=== PATIENT | male | born 1970 | race Caucasian/White ===

== ENCOUNTER 2016-12-01 16:39 | Emergency (ER) | payer BC ==
--- NOTE | 2016-12-01 17:01 | Emergency Department Record ---
History of Present Illness - General Chief complaint: Flank Pain Stated complaint: FLANK PAIN Time Seen by Provider: 12/01/16 16:49 Source: Patient Mode of Arrival: Ambulatory Limitations: No limitations - History of Present Illness Initial comments: 46 yo male presents with right back/flank pain that started Wednesday night. The pain initially came and went but is now constant. The pain is very sharp and hurts to twist or bend. No fever or chills. No blood in the urine. He denies any history of abdominal surgery. The patient was seen at [facility] with a report of normal labs and UA. He states no imaging was performed. The pain has been constant since that time. No chest pain. He points to his right flank as the source for pain. The pain "spams" if he rolls over or twists. Position changes hurt. NO radiation to the abdomen, legs or chest. He is most comfortable if standing. PCP is Dr Olivares. Onset/Timin Location: Right flank Radiation: R flank Quality: Sharp, Stabbing Consistency: Getting worse Improves with: None Worsens with: Movement, Palpation Reports: Other - Related Data Home Medications Medication Instructions Recorded Confirmed Last Taken Gabapentin [Gabapentin] 1 tab PO DAILY 09/24/13 12/01/16 12/01/16 Hydrocodone/Acetaminophen 1 tab PO Q6H PRN 09/24/13 12/01/16 12/01/16 [Hydrocodon-Acetaminophn 10-325] Levothyroxine Sodium [Levoxyl] 50 mcg PO DAILY 09/24/13 12/01/16 12/01/16 Allopurinol [Zyloprim] 300 mg PO DAILY 09/22/14 12/01/16 12/01/16 Azithromycin [Zithromax] 250 mg PO DAILY 12/01/16 12/01/16 12/01/16 Colchicine 0.6 mg PO ASDIR 12/01/16 12/01/16 Unknown Dexlansoprazole [Dexilant] 30 mg PO DAILY 12/01/16 12/01/16 12/01/16 Losartan Potassium 50 mg PO DAILY 12/01/16 12/01/16 12/01/16 Previous Rx's Medication Instructions Recorded Diazepam [Valium] 5 mg PO Q8H #20 tab 12/01/16 Methylprednisolone [Medrol Dose 4 mg PO DAILY #1 tab.ds.pk 12/01/16 Pack] Allergies Allergy/AdvReac Type Severity Reaction Status Date / Time saccharin Allergy Intermediate SWELLING Verified 03/10/15 08:34 OF THE LIPS sweet and low Allergy Intermediate SWELLING Uncoded 03/10/15 08:34 OF THE LIPS Travel Screening - Travel/Exposure Within Last 30 Days Have you traveled within the last 30 days?: No - Travel/Exposure Within Last Year Have you traveled outside the [place] in the last year?: No - Additonal Travel Details Have you been exposed to anyone with a communicable illness?: No - Travel Symptoms Symptom Screening: None Review of Systems Constitutional: Denies: Chills, Fever, Malaise, Weakness Eyes: Denies: Eye discharge ENT: Denies: Congestion, Throat pain Respiratory: Denies: Cough, Dyspnea, Hemoptysis, Stridor, Wheezes Cardiovascular: Denies: Chest pain, Palpitations, Syncope Endocrine: Denies: Fatigue Gastrointestinal: Denies: Abdominal pain, Diarrhea, Nausea, Vomiting Genitourinary: Denies: Dysuria, Frequency, Hematuria Musculoskeletal: Reports: Back pain. Denies: Arthralgia, Myalgia Skin: Denies: Bruising, Change in color, Rash Neurological: Denies: Headache, Numbness Psychiatric: Denies: Anxiety, Depression Hematological/Lymphatic: Denies: Blood Clots, Easy bleeding, Easy bruising, Swollen glands Past Medical History - SOCIAL HISTORY Smoking Status: Former smoker Alcohol Use: Rare Drug Use: None - RESPIRATORY Hx Respiratory Disorders: Yes Hx Sleep Apnea: Yes - CARDIOVASCULAR Hx Cardio Disorders: No - NEURO Hx Neuro Disorders: No - GI Hx GI Disorders: No - Hx Genitourinary Disorders: Yes Hx Kidney Stones: Yes - ENDOCRINE Hx Endocrine Disorders: Yes Hx Thyroid Disease: Yes (hypo) - MUSCULOSKELETAL Hx Musculoskeletal Disorders: Yes Hx Gout: Yes - PSYCH Hx Psych Problems: Yes Hx Depression: Yes - HEMATOLOGY/ONCOLOGY Hx Hematology/Oncology Disorders: No Family Medical History Any Significant Family History?: No Hx Cancer: Mother Hx Diabetes: Father Physical Exam - General General Appearance: Alert, Oriented x3, Cooperative, No acute distress - Head Head exam: Atraumatic, Normal inspection - Eye Eye exam: Normal appearance. negative: Conjunctival injection, Periorbital swelling - ENT ENT exam: Normal exam, Mucous membranes moist Ear exam: Normal external inspection Nasal Exam: Normal inspection Mouth exam: Normal external inspection - Neck Neck exam: Normal inspection - Respiratory Respiratory exam: Normal lung sounds bilaterally. negative: Respiratory distress - Cardiovascular Cardiovascular Exam: Regular rate, Normal rhythm, Normal heart sounds - GI/Abdominal GI/Abdominal exam: Soft, Other (obese). negative: Distended, Guarding, Rebound , Rigid, Tenderness - Rectal Rectal exam: Deferred - exam: Deferred - Extremities Extremities exam: Normal inspection, Full ROM, Normal capillary refill. negative: Tenderness - Back Back exam: Reports: CVA tenderness (R), Muscle spasm, Paraspinal tenderness. Denies: Full ROM Image of Body Front/Back: 1 - point tender in the right back, very reproducible with palpation or any movement. No rash to suggest zoster - Neurological Neurological exam: Alert, Normal gait, Oriented X3 - Psychiatric Psychiatric exam: Normal affect, Normal mood. negative: Agitated, Anxious - Skin Skin exam: Dry, Intact, Normal color, Warm Course Vital Signs 12/01/16 16:40 Temperature 98.8 F Pulse Rate 105 H Respiratory 20 Rate Blood Pressure 146/87 Pulse Ox 98 - Reevaluation(s) Reevaluation #1: Moderate blood in the urine. No signs of infection CBC no acute change. 12/01/16 17:21 The CMP reviewed CR is 1.3 with normal GFR>60 12/01/16 17:53 Reevaluation #2: The CT scan in negative for any acute changes. No renal stones or urinary tract abnormalities. No acute findings on the scan. Normal appendix and aorta The pain is positional in nature very reproducible with palpation increasing the likelihood of musculoskeletal in nature as he points directed to his right back No acute changes on the labs or CT scan 12/01/16 18:13 12/01/16 18:35 12/01/16 18:56 We discussed the findings I discussed calling his PCP tomorrow He may need an MRI if the pain continues in the right back Medical Decision Making - Lab Data Result diagrams: 12/01/16 17:01 12/01/16 17:01 Disposition Disposition: Discharge Clinical Impression: Right-sided back pain Qualifiers: Back pain location: back pain in unspecified location Chronicity: acute Qualified Code(s): M54.9 - Dorsalgia, unspecified Disposition: Home, Self-Care Condition: (1) Good Instructions: Flank Pain (ED) Additional Instructions: Call your doctor tomorrow to be seen You may need further work up with MRI if your back continues to hurt Return immediately if worse or if any new symptoms occur such as pain in the chest, abdomen, arms or legs Prescriptions: Diazepam [Valium] 5 mg PO Q8H #20 tab Methylprednisolone [Medrol Dose Pack] 4 mg PO DAILY #1 tab.ds.pk Forms: Patient Portal Access Time of Disposition: 18:39 Quality - Blood Pressure Screening Blood Pressure Classification: Pre-Hypertensive BP Reading Systolic Measurement: 146 Diastolic Measurement: 87 Screening for High Blood Pressure: < Pre-Hypertensive BP, F/U Documented > [ [id number]]
[2016-12-01 17:03] LABS: BASO % 0.5 % (0-6); EOS % 1.5 % (0-6); GRAN % 65.4 % (47-80); HEMATOCRIT 42.2 % (42.0-52.0); HEMOGLOBIN 14.1 gm/dl (14.0-18.0); LYMPH % 22.6 % (16-45); MEAN CELL VOLUME 87.2 fl (81-97); MEAN CORPUSCULAR HEMOGLOBIN 29.1 pg (27-33); MEAN CORPUSCULAR HGB CONC 33.4 g/dl (32-36); MEAN PLATELET VOLUME 11.4 fl (7.4-10.4); PLATELET COUNT 209 K/uL (130-400); RED BLOOD COUNT 4.84 M/uL (4.40-5.70); RED CELL DISTRIBUTION WIDTH 14.8 % (11.5-14.5); URINE APPEARANCE CLEAR; URINE BILIRUBIN NEGATIVE (NEGATIVE); URINE BLOOD MODERATE (NEGATIVE); URINE COLOR YELLOW; URINE GLUCOSE (UA) NEGATIVE (NEGATIVE); URINE KETONE NEGATIVE (NEGATIVE); URINE LEUKOCYTE ESTERASE NEGATIVE (NEGATIVE); URINE NITRITE NEGATIVE (NEGATIVE); URINE PROTEIN NEGATIVE (NEGATIVE); URINE UROBILINOGEN 0.2 E.U./dL (0.20 - 1.00); WHITE BLOOD COUNT W/O DIFF 10.1 K/uL (4.2-12.2)
[2016-12-01 17:13] LABS: URINE WBC 0 - 2 (0-2/hpf)
[2016-12-01 17:14] LABS: URINE BACTERIA FEW; URINE EPITHELIAL CELLS 0 - 2 (FEW)
[2016-12-01] MEDS: 0.9 % SODIUM CHLORIDE 1,000 ML BAG IV ONE (17:17)
[2016-12-01] MEDS: ONDANSETRON HCL IV 4 MG/2 ML VIAL IVP ONE (17:17)
[2016-12-01] MEDS: MORPHINE SULFATE 5 MG/ML PFS IVP ONE ×2 (17:17→17:26)
[2016-12-01 17:18] LABS: ALBUMIN 4.7 gm/dL (3.5-5.0); ALKALINE PHOSPHATASE 86 U/L (38-126); ALT/SGPT 40 U/L (21-72); ANION GAP 10.2 (7-16); AST/SGOT 19 U/L (17-59); BILIRUBIN,TOTAL 1.33 mg/dL (0.2-1.3); BLOOD UREA NITROGEN 12 mg/dL (9-20); CARBON DIOXIDE 28.8 mmol/L (22-30); CREATININE 1.3 mg/dL (0.66-1.25); EST GLOMERULAR FILTRATION RATE > 60 ml/min; GLUCOSE,RANDOM 103 mg/dL (70-110); TOTAL PROTEIN 8.2 gm/dL (6.3-8.2)
[2016-12-01] MEDS: METHYLPREDNISOLONE PF 125MG/VIAL IVP ONE (18:15)
[2016-12-01] MEDS: KETOROLAC 30 MG/ML VIAL IVP ONE (18:16)
[2016-12-01] MEDS: DIAZEPAM 5 MG/1 ML TUBX IVP ONE (18:22)
--- NOTE | 2016-12-02 14:23 | CT SCAN REPORT ---
EXAM: CT OF THE ABDOMEN AND PELVIS WITHOUT CONTRAST HISTORY: RIGHT FLANK PAIN. TECHNIQUE: CT of the abdomen and pelvis was performed without oral or IV contrast. This limits evaluation of bowel and solid visceral organs. Comparison: None. FINDINGS: Limited evaluation of the lung bases shows scarring in each lung base. The osseous structures are grossly intact. Fatty infiltrative change to the liver. The spleen, adrenal glands, pancreas, and kidneys are unremarkable. Negative for urinary tract calculus or hydronephrosis. The gallbladder is present. Abundant stool in the colon. Normal appendix. Mild atheromatous change. No free air or free fluid. The urinary bladder is not distended, limiting its evaluation. IMPRESSION: 1. NEGATIVE FOR AN ACUTE INTRAABDOMINAL/PELVIC PROCESS. 2. FATTY INFILTRATIVE CHANGE TO THE LIVER. JOB NUMBER: [id number] [facility]
== END 2016-12-01 19:20 | disposition home or self-care (01) ==
LOC: ER 16:39
DX: M54.6 Pain in thoracic spine (principal); R10.11 Right upper quadrant pain
CPT/HCPCS: 74176; 80048; 80076; 81001; 85025; 96374; 96375; 99284; J1885; J2405; J2930; J3360; J7030